=== PATIENT | female | born 1975 | race Caucasian/White ===

== ENCOUNTER 2018-07-22 13:06 | Emergency (ER) | payer MEDICAID ==
--- NOTE | 2018-07-22 13:54 | EDM.PDOC ---
ED HPI GENERAL MEDICAL PROBLEM - General Chief Complaint: Lower Extremity Injury/Pain Stated Complaint: L LEG SWELLING/PAIN Time Seen by Provider: 07/22/18 13:18 Source of Information: Reports: Patient, RN Notes Reviewed, Significant Other ( Boyfriend) History Limitations: Reports: No Limitations - History of Present Illness INITIAL COMMENTS - FREE TEXT/NARRATIVE: The patient states that she developed redness to her left popliteal fossa, decreased sensation to her entire left lower extremity, swelling to her left lower extremity, a left foot drop, and blisters on her left leg, after she fell asleep on both of her lower extremities for about 2 hours 07/19/2018. She states that she popped some of the blisters that day. No prior similar symptoms. No prior history of a DVT. The patient's story later changed. She told Luisa DARLING that she had fallen asleep on her legs only for about 15 minutes. Her story and then later changed again, stating that a dresser had fallen onto her left lower extremity on Saturday morning, 07/19/2018. The patient's PCP is Dr. Cary, in [place]. Treatments OLIVE PICKER: Reports: Acetaminophen Left Leg Pain Score (Numeric/FACES): 10 - Related Data Allergies Allergy/AdvReac Type Severity Reaction Status Date / Time morphine Allergy Hives Verified 07/22/18 13:21 tramadol HCl [From Ultram] Allergy Facial Verified 07/22/18 13:21 Swelling Home Meds: Home Meds oxyCODONE HCl/Acetaminophen [Percocet 5-325 mg Tablet] 1 each PO Q6H PRN #15 tablet 07/02/14 [Rx] ALPRAZolam [Alprazolam] 1 mg PO BID 04/23/18 [History] Acetaminophen/HYDROcodone [[place] 325-10 MG] 1 tab PO ASDIRECTED PRN 04/23/18 [ History] Propranolol [Inderal LA] 80 mg PO TID 04/23/18 [History] Amoxicillin/Potassium Clav [Augmentin 875-125 Tablet] 1 each PO ASDIRECTED 07/22 [History] Carisoprodol 1 tab PO QID 07/22/18 [History] Diltiazem HCl [Diltiazem 24Hr ER] 1 tab PO DAILY 07/22/18 [History] Promethazine [Phenergan] 25 mg PO Q6H PRN 07/22/18 [History] Past Medical History HEENT History: Reports: Impaired Vision Cardiovascular History: Reports: Hypertension Respiratory History: Reports: Asthma (suspected) 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: Musculoskeletal History: Reports: Arthritis, Back Pain, Chronic, Fracture (T6 compression fx), Neck Pain, Chronic Psychiatric History: Reports: Addiction, Depression, PTSD Endocrine/Metabolic History: Reports: Hypothyroidism, Obesity/BMI 30+ Oncologic (Cancer) History: Reports: Cervix, Thyroid - Infectious Disease History Infectious Disease History: Reports: Chicken Pox, Mumps - Past Surgical History HEENT Surgical History: Reports: Oral Surgery (wisdom teeth extraction) Female Surgical History: Reports: Hysterectomy, Salpingo-Oophorectomy Endocrine Surgical History: Reports: Thyroidectomy (left partial) Musculoskeletal Surgical History: Reports: Other (See Below) (Left foot bunionectomy and hammertoe surgery) Social & Family History - Family History Family Medical History: Noncontributory - Tobacco Use Smoking Status *Q: Current Every Day Smoker Years of Tobacco use: 20 Packs/Tins Daily: 1 - Caffeine Use Caffeine Use: Reports: Soda - Alcohol Use Alcohol Use History: No - Recreational Drug Use Recreational Drug Use: Yes Drug Use in Last 12 Months: Yes Recreational Drug Type: Reports: Marijuana/Hashish (smokes on occasion) - Living Situation & Occupation Living situation: Reports: (), Other (with a friend) Occupation: Unemployed Review of Systems - Review of Systems Review Of Systems: ROS reveals no pertinent complaints other than HPI. ED EXAM, GENERAL - Physical Exam Exam: See Below Exam Limited By: No Limitations General Appearance: Alert, WD/WN, No Apparent Distress Eye Exam: Bilateral Eye: EOMI, Normal Inspection Ears: Normal External Exam, Hearing Grossly Normal Nose: Normal Inspection Throat/Mouth: Normal Inspection, Normal Lips, Normal Voice, No Airway Compromise Head: Atraumatic, Normocephalic Neck: Normal Inspection, Full Range of Motion Respiratory/Chest: No Respiratory Distress, Lungs Clear, Normal Breath Sounds, No Accessory Muscle Use Cardiovascular: Regular Rate, Rhythm, No Gallop, No JVD, No Murmur, No Rub Peripheral Pulses: 0: Popliteal (L) (area is indurated - no pulse felt), 4+: Radial (L), Radial (R), Femoral (L), Femoral (R), Popliteal (R), Posterior Tibial (L), Posterior Tibial (R), Dorsalis Pedis (L), Dorsalis Pedis (R) GI/Abdominal: Normal Bowel Sounds, Soft, Non-Tender, No Organomegaly, No Distention, No Abnormal Bruit, No Mass (Female) Exam: Deferred Rectal (Female) Exam: Deferred Back Exam: Normal Inspection, Full Range of Motion, NT Extremities: Other (The left lower extremity appears to be swollen, when compared to the right lower extremity. There is a rectangular area of erythema to the posterior left lower extremity, measuring approximately 48 cm in length by 10 cm wide, however, the deepest erythema is in the popliteal fossa, measuring approximately 20 cm in length, 10 cm wide. The area of erythema is indurated, but the patient reports it is nontender. There are numerous areas of blistering on the anterior and anterolateral left leg, in a scratch-like pattern. There is no suggestion of infection. Both lower extremities are warm to palpation, with normal dorsalis pedis and posterior tibialis pulses.) Neurological: Alert, Oriented, Normal Cognition, No Motor/Sensory Deficits Psychiatric: Normal Affect Skin Exam: Warm, Dry, Intact, No Rash Course - Vital Signs Last Recorded V/S: Last Vital Signs Temp 37.0 C 07/22/18 18:30 Pulse 74 07/22/18 18:30 Resp 18 07/22/18 18:30 BP 118/77 07/22/18 18:30 Pulse Ox 97 07/22/18 18:30 - Orders/Labs/Meds Labs: Laboratory Tests 07/22/18 07/22/18 07/22/18 Range/Units 14:01 14:01 14:01 WBC 15.60 H (3.98-10.04) K/mm3 RBC 4.87 (3.98-5.22) M/mm3 Hgb 14.7 (11.2-15.7) gm/L Hct 44.7 (34.1-44.9) % MCV 91.8 (79.4-94.8) fl MCH 30.2 (25.6-32.2) pg MCHC 32.9 (32.2-35.5) g/dl RDW Std Deviation 47.5 H (36.4-46.3) fL Plt Count 327 (182-369) K/mm3 MPV 9.9 (9.4-12.3) fl Neutrophils % (Manual) 67 H (40-60) % Band Neutrophils % 0 (0-10) % Lymphocytes % (Manual) 19 L (20-40) % Atypical Lymphs % 0 % Monocytes % (Manual) 14 H (2-10) % Eosinophils % (Manual) 0 L (0.7-5.8) % Basophils % (Manual) 0 L (0.1-1.2) Platelet Estimate Adequate Plt Morphology Comment Normal RBC Morph Comment Normal PT 10.8 (9.5-12.1) SECONDS INR 0.99 APTT 29 (24-31) SECONDS Sodium 134 L (136-145) mEq/L Potassium 3.6 (3.5-5.1) mEq/L Chloride 98 (98-107) mEq/L Carbon Dioxide 26 (21-32) mEq/L Anion Gap 13.6 (5-15) BUN 28 H (7-18) mg/dL Creatinine 2.6 H (0.55-1.02) mg/dL Est Cr Clr Drug Dosing 32.15 mL/min Estimated GFR (MDRD) 20 (>60) mL/min BUN/Creatinine Ratio 10.8 L (14-18) Glucose 116 H (74-106) mg/dL Calcium 8.5 (8.5-10.1) mg/dL Total Bilirubin 0.6 (0.2-1.0) mg/dL AST 1693 H (15-37) U/L ALT 285 H (14-59) U/L Alkaline Phosphatase 114 (46-116) U/L Creatine Kinase 85029 H (26-192) U/L Total Protein 7.2 (6.4-8.2) g/dl Albumin 3.0 L (3.4-5.0) g/dl Globulin 4.2 gm/dL Albumin/Globulin Ratio 0.7 L (1-2) Meds: Medications Discontinued Medications Generic Name Dose Route Start Last Admin Trade Name Freq PRN Reason Stop Dose Admin Oxycodone HCl 15 mg 07/22/18 18:03 07/22/18 18:10 Oxycodone PO 07/22/18 18:04 15 mg ONETIME ONE Administration - Re-Assessments/Exams Free Text/Narrative Re-Assessment/Exam: 07/22/18 13:49 The patient's left lower extremity swelling and posterior erythema is concerning for a DVT. I have ordered a Doppler of the left lower extremity along with coags. 07/22/18 15:43 Doppler ultrasound of the left lower extremity is read by Dr. Perales as: 1. 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 2. No definite findings of acute thrombosis is seen with left lower extremity or within the right common femoral vein. 07/22/18 16:00 I am concerned about compartment syndrome in this patient. Unfortunately, we do not have orthopedic coverage today. Case discussed with Mel at [facility], at 15:50. Case then discussed with Dr. Sorenson, Orthopedic Surgeon at [facility] , at 15:55. As the patient is complaining of paresthesia, but no severe pain, and she has good left foot perfusion, he feels that if the patient has compartment syndrome, it would likely be old, therefore a fasciotomy would not be indicated. He is recommending that I check some blood work to make sure that there is no infection, then have the patient follow-up with Dr. Maxwell as an outpatient. I have ordered a CBC, CMP, and CPK. 07/22/18 18:43 The patient's WBC has returned elevated at 15.60, but with 0% bandemia. The patient's BUN/Cr has returned significantly elevated at 28/2.6. It was normal at 6/0.7 on 04/23/2018. The patient's transaminases are significantly elevated, with an AST of 1693, and an ALT of 285. The patient's CPK is not yet back, as it is being diluted by the lab. I spoke to them a few minutes ago, and the informed me that at this point, her CPK appears to be at minimum 50,000. The above was discussed with the patient. I'm recommending transfer to [place] , because she has rhabdomyolysis with renal failure, which would ordinarily be treated with copious IV fluid, however, if she does not yet have compartment syndrome, she will after I give her very much IV fluid. I feel very strongly that the patient needs to be seen by an Orthopedic Surgeon before IVF is given. Case then discussed with Mel at [facility], at 18:32. Case then discussed with Dr. Sorenson at 18:35. He recommended that we transfer the patient to their ED. Case then discussed with Dr. Cooney, Emergency Physician at [facility] , at 18:39. He accepted the patient to be transported to their ED. I will have the nurse place an IV, but for the reasons stated above, I am not ordering IV fluid. We will keep the patient NPO. The patient requested a nicotine patch, however, because nicotine causes vasoconstriction, I believe it would be in the patient's best interest to not have nicotine at this point. 07/22/18 19:11 Doppler ultrasound of the left lower extremity images have been pushed to [facility]. Departure - Departure Time of Disposition: 18:45 Disposition: DC/Tfer to Acute Hospital 02 Condition: Serious Clinical Impression: Rhabdomyolysis, Acute renal failure, Compartment syndrome of left lower extremity, Elevated transaminase level - Discharge Information *PRESCRIPTION DRUG MONITORING PROGRAM REVIEWED*: Not Applicable *COPY OF PRESCRIPTION DRUG MONITORING REPORT IN PATIENT JOSSELYN: Not Applicable Referrals: Ignacia Cary MD [Primary Care Provider] -
--- NOTE | 2018-07-22 15:36 | US ---
Left lower extremity deep venous ultrasound: Duplex and color flow imaging was obtained of the left common femoral, proximal greater saphenous, superficial femoral, popliteal, posterior tibial and peroneal veins. Right common femoral vein also was evaluated. Findings: Distal left superficial femoral and popliteal veins show no significant flow which is felt compatible with old thrombus as there is some collateral vessels being seen. No acute venous thrombosis is seen. Impression: 1. 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 2. No definite findings of acute thrombosis is seen with left lower extremity or within the right common femoral vein. Diagnostic code #3
== END 2018-07-22 19:35 ==
LOC: JD.ED 13:06
DX: M79.A22 Nontraumatic compartment syndrome of left lower extremity (principal); M62.82 Rhabdomyolysis; N28.9 Disorder of kidney and ureter, unspecified; R79.89 Other specified abnormal findings of blood chemistry; F17.210 Nicotine dependence, cigarettes, uncomplicated
CPT/HCPCS: 36415; 80053; 82550; 85007; 85027; 85610; 85730; 93971; 99285; A9270